=== PATIENT | male | born 1985 | race Caucasian/White ===

== ENCOUNTER 2022-11-04 12:38 | Emergency (ER) | payer SELFPAY ==
[2022-11-04] MEDS ORDERED: ETOMIDATE 20 MG/10 ML VIAL IV ONE (12:39)
[2022-11-04] MEDS ORDERED: ROCURONIUM 50 MG/5 ML VIAL IV ONE (12:39)
[2022-11-04] MEDS ORDERED: LORazepam 2 MG/ML VIAL ONE ×2 (12:42→13:22)
[2022-11-04] MEDS ORDERED: NA CHLORIDE 0.9% 2,000 ML ONE ×3 (12:42→12:53)
--- OUTSIDE RECORDS SUMMARY | 2022-11-04 12:43 | XMS REPORT | Continuity of Care Document ---
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 ramirez [facility] 2019-11-19 2019-11-19 Emergency Ruth [facility] 1.2.840.114 [id number] Univers 16:23:37 19:40:00 Antoine B Health 350.1.13.10 it y of [place] 4.2.7.2.686 [facility] [id number] [address] ([facility]) 2019-11-19 2019-11-19 Emergency X RUTH [facility] ERT [id number] Univers 16:23:37 19:40:00 ANTOINE ity of [facility] 2019-11-16 2019-11-16 Telephone Orthopedic [facility] 1.2.840.114 [id number] Univers 00:00:00 00:00:00 Surgery SOUTH 350.1.13.10 it y of [place] 4.2.7.2.686 [facility] [id number] [address] 2019-11-14 2019-11-14 Emergency Ekaterina, [facility] 1.2.530.173 [id number] Univers 20:46:41 22:30:00 [facility] 350.1.13.10 it y of [place] 4.2.7.2.686 [facility] [phone] [address] ([facility]) 2019-11-14 2019-11-14 Emergency X EKATERINA, [facility] ERT [id number] Univers 20:46:41 22:30:00 CYNPATRICIA itkathy [facility] 2019-10-31 2019-11-04 Inpatient HCACL HARLEY [id number] [facility] 02:33:00 08:01:52 29 [facility] 2018-04-15 2018-04-15 Emergency [facility] [id number] [place] 16:40:37 16:40:37 Health 2017-01-31 2017-01-31 Outpatient [facility] [id number] [place] 00:00:00 00:00:00 Health 2017-01-28 2017-01-28 Emergency [facility] [id number] [place] 00:45:08 00:45:08 Health Results Test Description Test Time Test Comments Results Result Comments Source CBC with Differential 2022-03-12 11:35:48 Test Item Value Reference Range Interpretation Comme nts WBC (test code = 6690-2) See_Comment [A utomated message] The system which ge nerated this result transmit rosalio reference range: 4.20 - 1 0.70 10*3/?L. The reference r belem was not used to interpr et this result as normal/abnor mal. RBC (test code = 789-8) See_Comment [Au tomated message] The system which [employer] nerated this result transmit rosalio reference range: 4.26 - 5 .52 10*6/?L. The reference r belem was not used to interpr et this result as normal/abnor mal. HGB (test code = 718-7) 14.1 g/dL 12.2-16.4 HCT (test code = 4544-3) 41.4 % 38.4-49.3 MCV (test code = 787-2) 92.8 fL 81.7-95.6 MCH (test code = 785-6) 31.6 pg 26.1-32.7 MCHC (test code = 786-4) 34.1 g/dL 31.2-35 RDW-SD (test code = 73510-8) 42.0 fL 38.5-51.6 RDW-CV (test code = 788-0) 12.2 % 12.1-15.4 PLT (test code = 777-3) See_Comment H [Au tomated message] The system which [employer] nerated this result transmit rosalio reference range: 150 - 32 8 10*3/?L. The reference range was not used to interpret th is result as normal/abnormal . MPV (test code = 67085-1) 8.9 fL 9.8-13 L NRBC/100 WBC (test code = See_Comment [ Automated message] The [id number]) system which [employer] nerated this result transmit rosalio reference range: 0.0 - 10 .0 /100 WBCs. The reference r belem was not used to interpr et this result as normal/abnor mal. NRBC x10^3 (test code = See_Comment [Au tomated message] The 7174540451) system which [employer] nerated this result transmit rosalio reference range: 10*3/?L. The reference range was not u sed to interpret this result as normal/abnormal . GRAN MAT (NEUT) % (test code 73.2 % = 770-8) IMM GRAN % (test code = 1.20 % 8282954981) LYMPH % (test code = 736-9) 17.1 % MONO % (test code = 5905-5) 7.5 % EOS % (test code = 713-8) 0.2 % BASO % (test code = 706-2) 0.8 % GRAN MAT x10^3(ANC) (test 6.47 10*3/uL 1.99-6.95 code = 8285251441) IMM GRAN x10^3 (test code = 0.11 10*3/uL 0-0.06 H 0298782839) LYMPH x10^3 (test code = 1.51 10*3/uL 1.09-3.23 731-0) MONO x10^3 (test code = 0.66 10*3/uL 0.36-1.02 742-7) EOS x10^3 (test code = 0.06-0.53 L 711-2) BASO x10^3 (test code = 0.07 10*3/uL 0.01-0.09 704-7) Lab Interpretation (test Abnormal code = 38501-4) [facility] [id number] 11:30:30 Test Item Value Reference Range Interpretation Comments NA (test code = 142 mmol/L 135-145 9331857958) K (test code = 4.3 mmol/L 3.5-5 3433674288) CL (test code = 103 mmol/L 98-108 5237667189) CO2 TOTAL (test code = 28 mmol/L 23-31 0074164303) AGAP (test code = 2-16 3228090792) BUN (test code = 28 mg/dL 7-23 H 0578035154) GLUCOSE (test code = 109 mg/dL 70-110 1916680488) CREATININE (test code = 1.18 mg/dL 0.6-1.25 2672908529) TOTAL BILI (test code = 0.3 mg/dL 0.1-1.1 1470499278) CALCIUM (test code = 10.2 mg/dL 8.6-10.6 6690089272) T PROTEIN (test code = 8.0 g/dL 6.3-8.2 7675694505) ALBUMIN (test code = 5.0 g/dL 3.5-5 2940429306) ALK PHOS (test code = 73 U/L 34-122 1656780510) ALTv (test code = 19 U/L 5-50 1742-6) AST(SGOT) (test code = 20 U/L 13-40 8079331663) eGFR (test code = mL/min/1.73m2 6513256697) SPRING (test code = SPRING) Association of Glomerular Filtration Rate (GFR) and Staging of Kidney Disease* + --+ --+ ------+| GFR (mL/min/1.73 m2) ?| With Kidney Damage ?| ?Without Kidney Damage+ --------+ --------+ +| ?>90 ?| ?Stage one ?| ? Normal ?+ ---+ ---+ -------+| ?60-89 ?| ?Stage two ?| ? Decreased GFR ? + --+ --+ ------+| ?30-59 ?| ?Stage three ?| ? Stage three ? + --+ --+ ------+| ?15-29 ?| ?Stage four ? | ? Stage four ?+ ---+ ---+ -------+| ?<15 (or dialysis) ? ?| ?Stage five ? | ? Stage five ?+ ---+ ---+ -------+ *Each stage assumes the associated GFR level has been in effect for at least three months. ?Stages 1 to 5, with or without kidney disease, indicate chronic kidney disease. Notes: Determination of stages one and two (with eGFR >59mL/min/1.73 m2) requires estimation of kidney damage for at least three months as defined by structural or functional abnormalities of the kidney, manifested by either:Pathological abnormalities or Markers of kidney damage (including abnormalities in the composition of the blood or urine or abnormalities in imaging tests). Lab Interpretation Abnormal (test code = 15483-5) [facility], [id number] 11:30:09 Test Item Value Reference Range Interpretation Comments LIPASE (test code = 9963452090) 72 U/L 0-220 Lab Interpretation (test code = Normal 36453-8) [facility], Urinalysis Rflx Cult/[id number] 00:30:00 Test Item Value Reference Range Interpretation Comments Color,Urine (test code = UCOL) Yellow Yellow Clarity,Urine (test code = Clear Clear UCLAR) Ph, Urine (test code = UPH) 5.5 5.0-9.0 N Specific [place],Urine (test >= 1.030 1.005-1.030 N code = USG) Blood,Urine (test code = UBLD) Negative mg/dL Negative Protein,Urine (test code = Trace mg/dL Negative A UPRO) Glucose,Urine (UA) (test code Negative mg/dL Negative = UGLU) Ketones,Urine (test code = Trace mg/dL Negative A UKET) Nitrate,Urine (test code = Negative Negative UNIT) Bilirubin,Urine (test code = Negative mg/dL Negative UBIL) Urobilinogen,Urine (test code 1.0 E.U./dL Normal = UURO) Leukocyte Esterase,Urine (test Negative mg/dL Negative code = ULEU) Urine [id number] 00:30:00 Test Item Value Reference Range Interpretation Comments RBC,Urine (test code = URBCUF) 3-5 /HPF 0-2 A WBC,Urine (test code = UWBCUF) 0-5 /HPF 0-5 Epithelial Cell,Urine (test None Seen /HPF 0-5 code = UECUF) Casts,Urine (test code = None Seen /LPF None Seen UCASTUF) Bacteria,Urine (test code = None Seen /hpf None Seen UBACTUF) Drug Screen,[id number] 00:30:00 Test Item Value Reference Range Interpretation Comments PCP Phencyclidine Negative Negative Screen,Urine (test code = PCPU) Amphetamine Positive Negative A Confirmation by GC/MS Screen,Urine (test code not routinely = AMPU) performed. Ifconfirmation is required, an or rossy must be placed. Methadone Screen,Urine Negative Negative (test code = METHU) Opiate Screen,Urine Negative Negative (test code = UOPIS) Barbituates Negative Negative Screen,Urine (test code = BARBU) Benzodiazepines Negative Negative Screen,Urine (test code = UBENZS) Cocaine Screen,Urine Negative Negative (test code = UCOCS) Cannabinoid Positive Negative A Screen,Urine (test code = UTHCS) Propoxyphene Screen, TNP Negative Urine (test code = UPROP) Complete Blood Count Auto [id number] 19:30:00 Test Item Value Reference Range Interpretation Comments White Blood Count (test code = 6.0 x10 3/uL 4.4-10.5 N WBCT) Red Blood Count (test code = 4.06 x10 6/uL 4.10-5.70 L RBC) Hemoglobin (test code = HGBT) 12.9 g/dL 13.4-17.4 L Hematocrit (test code = HCTT) 38.7 % 38.7-52.0 N Mean Corpuscular Volume (test 95.30 fL 80.00-100.00 N code = MCV) Mean Corpuscular Hemoglobin 31.8 pg 27.0-32.5 N (test code = MCH) Mean Corpuscular HGB Conc 33.30 g/dL 32.00-37.50 N (test code = MCHC) RDW Coefficient of Variation 12.3 % 11.5-14.5 N (test code = RDWCV) Platelet Count (test code = 359.0 x10 3/uL 140.0-440.0 N PLTT) Mean Platelet Volume (test 8.9 fL code = MPV) Immature Granulocytes % (Auto) 0.2 % 0.0-5.0 N (test code = IMMGRAN%) Neutrophils % (Auto) (test 71.0 % 36.0-70.0 H code = NE%) Lymphocytes % (Auto) (test 19.3 % 12.0-44.0 N code = LY%) Monocytes % (Auto) (test code 8.5 % 0.0-11.0 N = MO%) Eosinophils % (Auto) (test 0.5 % 0.0-7.0 N code = EO%) Basophils % (Auto) (test code 0.5 % 0.0-2.0 N = BA%) Immature Granulocytes # (Auto) 0.01 x10 3/uL (test code = IMMGRAN#) Neutrophils # (Auto) (test 4.2 x10 3/uL 1.6-7.4 N code = NE#) Lymphocytes # (Auto) (test 1.15 x10 3/uL 0.50-4.60 N code = LY#) Monocytes # (Auto) (test code 0.51 x10 3/uL 0.00-1.20 N = MO#) Eosinophils # (Auto) (test 0.03 x10 3/uL 0.00-0.74 N code = EO#) Basophils # (Auto) (test code 0.03 x10 3/uL 0.00-0.21 N = BA#) nRBC Abs (test code = NRBCA) 0 nRBC Pct (test code = NRBCP) 0 % Comprehensive Metabolic [id number] 19:30:00 Test Item Value Reference Range Interpretation Comments SODIUM (test code = NA) 141.0 mmol/L 136.0-145.0 N Potassium,K (test code = K) 3.4 mmol/L 3.0-5.1 N Chloride (test code = CL) 105 mmol/L 98-107 N Carbon Dioxide (test code = CO2) 28 mmol/L 20-31 N Anion Gap (test code = GAP) 8 mmol/L 5-15 N Blood Urea Nitrogen (test code = 19 mg/dL 9-23 N BUN) Creatinine (test code = CREATT) 1.06 mg/dL 0.55-1.02 H Creatinine Clr Calc Pharmacy 93.96 mL/min (test code = CRCLPHA) Estimated GFR ( Darlene > 60 mL/min/1.73m2 (test code = EGFRAA) Estimated GFR (Non Afr Darlene > 60 mL/min/1.73m2 (test code = EGFRNAA) BUN/Creatinine Ratio (test code 18 ratio 10-20 N = BCRATIO) Glucose (test code = GLU) 98 mg/dL 74-106 N Osmolality,Calculated (test code 293.7 = OSMOC) Calcium (test code = CA) 9.4 mg/dL 8.3-10.6 N Bilirubin,Total (test code = 0.6 mg/dL 0.2-1.1 N BILIT) Aspartate Amino Transferase 40 U/L 0-34 H (test code = AST) Alanine Aminotransferase (test 22 U/L 10-49 N code = ALT) Total Protein (test code = TP) 6.7 g/dL 5.7-8.2 N Albumin Level (test code = ALB) 4.5 g/dL 3.2-4.8 N Globulin (test code = GLOB) 2.2 mg/dL 2.3-3.5 L Albumin/Globulin Ratio (test 2.0 ratio 0.8-2.0 N code = AGRATIO) Alkaline Phosphatase (test code 58 U/L 46-116 N = ALP) Ethanol [id number] 19:30:00 Test Item Value Reference Range Interpretation Comments Ethanol (test code < 3 mg/dL The pharm acological = ETOH) response to blo od alcohol levels mayvary from individual to i ndividual. The fatal aye ntrationhas been reported t o be >400mg/dL. Coronavirus PCR, COVID19 [id number] 19:30:00 Test Item Value Reference Range Interpretation Comments Coronavirus PCR, For use under Emergency COVID19 Rapid (test Use Authorization (EUA) code = SARSCOV2) only. Coronavirus PCR, Reference Range: COVID19 Rapid (test Negative code = FXCXUSW98.1) SARS-CoV-2 PCR Result: Negative by RT-PCR (test code = SARS-CoV-2 PCR Result:) COVID-19 Status: AsymptomaticCOVID 19 Asymptomatic IH [id number] 12:33:00 Test Item Value Reference Range Interpretation Comments COVID 19 NEGATIVE NEGATIVE Negative result s should be Asymptomatic IH AG treated a s presumptive and (test code = ifinconsistent with COVNONPUIAG) clinical signs and symptoms, or ne cessaryfor patient managem ent, should be tested with an alternativemole cular assay. Negative results do not preclude FGNG-DrU-0yadwr tion and should not be u sed as the sole basis forp atient management deci sions. Negative result s should beconsidered in the context of a pa tient's recent exposure s,history, presence of cli nical signs and symptoms consistentwith COVID-19. DRUGS OF ABUSE SCREEN [id number] 12:19:00 Test Item Value Reference Interpretation Comments Range URN COCAINE (test NEGATIVE NEGATIVE Cocaine cu t-off code = COCAURN) concentratio n: 300 ng/mL URN CANNABINOIDS POSITIVE NEGATIVE A UNCONFIRMED INITIAL (test code = SCREENING ONLY; SUGGEST CANNABURN) ADDITIONALCONFI RMATORY TESTING.Cannabi noids cut-off concent ration: 50 ng/mL URN AMPHETAMINE POSITIVE NEGATIVE A UNCONFIRMED INITIAL (test code = SCREENING ONLY; SUGGEST AMPHETURN) ADDITIONALCONFI RMATORY TESTING.Ampheta mine cut-off concentration: 1000 ng/mL URN BARBITURATE NEGATIVE NEGATIVE Barbiturate cut-off (test code = concentration: 200 ng/mL BARBITURN) URN BENZODIAZEPINE NEGATIVE NEGATIVE Benzodiaz epine cut-off (test code = concentration: 200 ng/mL BENZOURN) URN OPIATES (test NEGATIVE NEGATIVE Opiates cu t-off code = OPIATURN) concentrati on: 2000 ng/mL URN PHENCYCLIDINE NEGATIVE NEGATIVE Phencyclid ine(PCP) cut-off (PCP) (test code = concentra tion: 25 ng/ml PHENCURN) URN METHADONE (test NEGATIVE NEGATIVE Methadon e cut-off code = METHAURN) concentrati on: 300 ng/mL COMPREHENSIVE METABOLIC [id number] 12:00:00 Test Item Value Reference Range Interpretation Comments SODIUM (test code = NA) 138 mmol/l 134.0-147.0 N POTASSIUM (test code = K) 3.3 mmol/L 3.6-5.2 L CHLORIDE (test code = CL) 102 mmol/l 98.0-107.0 N CARBON DIOXIDE (test code = CO2) 28.7 mmol/l 21.0-33.0 N ANION GAP (test code = GAP) 10.6 0-20 N GLUCOSE (test code = GLU) 110 mg/dl 70.0-110.0 N BLOOD UREA NITROGEN (test code = 20 mg/dl 7.0-18.0 H BUN) CREATININE (test code = CREAT) 1.11 mg/dL 0.60-1.30 N GFR NON BLACK (test code = 79 mL/min 105-110 L GFRNONBLACK) GFR BLACK (test code = GFRBLACK) 95 mL/min 127-133 L TOTAL PROTEIN (test code = PROT) 7.8 GM/DL 6.0-8.1 N ALBUMIN (test code = ALB) 4.4 gm/dL 3.2-4.7 N CALCIUM (test code = CA) 9.2 mg/dl 8.0-10.5 N BILIRUBIN TOTAL (test code = 0.5 mg/dl 0.0-1.0 N BILT) SGOT/AST (test code = AST) 21 Units/L 15-37 N SGPT/ALT (test code = ALT) 29 Units/L 12.0-78.0 N ALKALINE PHOSPHATASE TOTAL (test 60 Units/L 50.0-136.0 N code = ALKP) [id number] 12:00:00 Test Item Value Reference Range Interpretation Comments ALCOHOL (test code 0.00 gm/dL 0.00-0.00 N ETHYL ALC OHOL VALUES - = ALC) INTERPRETATION: 0.050 GM/DL - NOT INT OXICATED 0.100 GM/DL - INTOXICATED 0.3 50-0.450 GM/DL - SEVEREL Y INTOXICATED 0.5 50 GM/DL- FATAL INTOXICAT ION CBC W/AUTO [id number] 11:52:00 Test Item Value Reference Range Interpretation Comments WHITE BLOOD CELL (test code = 6.9 K/mm3 4.5-11.0 N WBC) RED BLOOD CELL (test code = 4.15 M/mm3 4.40-5.90 L RBC) HEMOGLOBIN (test code = HGB) 13.4 gm/dL 13.0-17.0 N HEMATOCRIT (test code = HCT) 38.8 % 36.0-48.0 N MEAN CELL VOLUME (test code = 93.5 UM3 80.0-94.0 N MCV) MEAN CELL HGB (test code = MCH) 32.3 UUG 25.5-32.5 N MEAN CELL HGB CONCETRATION 34.5 gm/dL 29.0-35.5 N (test code = MCHC) RED CELL DISTRIBUTION WIDTH 12.5 % 11.5-15.0 N (test code = RDW) RED CELL DISTRIBUTION WIDTH SD 42.9 fL 34.8-50.2 N (test code = RDW-SD) PLATELET COUNT (test code = 351 K/mm3 150-400 N PLT) MEAN PLATELET VOLUME (test code 9.1 fl 7.4-10.4 N = MPV) NEUTROPHIL % (test code = NT%) 66.0 % 49.0-76.0 N IMMATURE GRANULOCYTE % (test 0.1 % 0.0-0.4 N code = IG%) LYMPHOCYTE % (test code = LY%) 24.6 % 23.0-38.0 N MONOCYTE % (test code = MO%) 8.5 % 1.0-10.0 N EOSINOPHIL % (test code = EO%) 0.4 % 1.0-5.0 L BASOPHIL % (test code = BA%) 0.4 % 0.0-1.0 N NUCLEATED RBC % (test code = 0.0 % 0.0-0.1 N NRBC%) NEUTROPHIL # (test code = NT#) 4.6 K/mm3 2.4-6.3 N IMMATURE GRANULOCYTE # (test 0.01 x10 3/uL 0.00-0.07 N code = IG#) LYMPHOCYTE # (test code = LY#) 1.7 K/mm3 1.2-4.0 N MONOCYTE # (test code = MO#) 0.6 K/mm3 0.0-0.6 N EOSINOPHIL # (test code = EO#) 0.0 K/MM3 0.0-0.7 N BASOPHIL # (test code = BA#) 0.0 K/mm3 0.0-0.2 N NUCLEATED RBC # (test code = 0.00 X10 3uL 0.00-0.01 N NRBC#) - DUP AB/PEL/SC [id number] 06:55:00 [facility])Name: GOPAL ANDRES : 1985 Sex: M Name: GOPAL ANDRES [facility] : 1985 Age/S: 36 / M [address] [facility] Unit #: [id number] Loc: [place] [address] Phys: Clemencia Vieira MD Acct: [id number] Dis Date: Status: REG ER PHONE #: [phone] Exam Date: 06/07/202148 FAX #: [phone] Reason: R/O TORSION EXAMS: CPT CODE: [id number] DUP AB/PEL/SC COMP [id number] EXAM: - US SCROTUM AND CNTS, - DUP AB/PEL/SC COMP LOCATION: [facility] HISTORY: 36 years-year old Male with right testicle pain COMPARISON: None TECHNIQUE: Real time sonography was done with the variable megahertz high frequency linear transducer. Spectral Doppler and color Doppler sonographic analysis of the testicles was performed. FINDINGS: RIGHT TESTICLE: 4.4 x 1.8 x 3 cm. Normal arterial flow. No masses. LEFT TESTICLE: 4.5 x 2.1 x 2.7 cm. Normal arterial flow. No masses. EPIDIDYMIDES: Within normal limits of size. 6 mm right epididymal cyst. SCROTUM: Small bilateral varicoceles. No hydrocele, varicocele, or hernia. IMPRESSION: 1. No evidence of torsion. 2. Small bilateral varicoceles. at 0655 Reported and signed by: Gregg Luna M.D. CC: Ephraim Turner M.D.; Clemencia Vieira MD Technologist: Deisy Lang RDMS [facility] Date/Time: 06/07/2021 (06) [email or web address] Print D/T: S: 06/07/2021 (0659) Probe: PAGE 1 Signed Report- US SCROTUM AND CNTS 2021-06-07 06:55:00 [facility])Name: GOPAL ANDRES : 1985 Sex: M Name: GOPAL ANDRES [facility] : 1985 Age/S: 36 / M [address] [facility] Unit #:[id number] Loc: [place] [address] Phys: Clemencia Vieira MD Acct: [id number] Dis Date: Status: REG ER PHONE #: [phone] Exam Date: 06/07/2021 0648 FAX #: [phone] Reason: right testicle pain EXAMS: CPT CODE: [id number] US SCROTUM AND CNTS [id number] EXAM: - US SCROTUM AND CNTS, - DUP AB/PEL/SC COMP LOCATION: H57 HISTORY: 36 years-year old Male with right testicle pain COMPARISON: None TECHNIQUE: Real time sonography was done with the variable megahertz high frequency linear transducer. Spectral Doppler and color Doppler sonographic analysis of the testicles was performed. FINDINGS: RIGHT TESTICLE: 4.4 x 1.8 x 3 cm. Normal arterial flow. No masses. LEFT TESTICLE: 4.5 x 2.1 x 2.7 cm. Normal arterial flow. No masses. EPIDIDYMIDES: Within normal limits of size. 6 mm right epididymal cyst. SCROTUM: Small bilateral varicoceles. No hydrocele, varicocele, or hernia. IMPRESSION: 1. No evidence of torsion. 2. Small bilateral varicoceles. at 0655 Reported and signed by: Gregg Luna M.D. CC: Ephraim Turner M.D.; Clemencia Vieira MD Technologist: Deisy Lang RDMS Trnscb Date/Time: 06/07/2021 (0655) [email or web address] Orig Print D/T: S: 06/07/2021 (0659) Probe: PAGE 1 Signed ReportLACTIC [id number] 04:13:00 Test Item Value Reference Range Interpretation Comments LACTIC ACID (test code = LACT) 1.9 mmol/L 0.4-1.9 N - CTA [id number] 04:12:00 [facility])Name: GOPAL ANDRES: 1985 Sex: M Name: GOPAL ANDRES [facility] : 1985 Age/S: 36 / M [address] On License Of [facility] Unit #:[id number] Loc: [place] [address] Phys: Clemencia Vieira MD Acct: [id number] Dis Date: Status: REG ER PHONE #: [phone] Exam Date: 06/07/2021328 FAX #: [phone] Reason: tachycardia, hypoxia EXAMS: CPT CODE: [id number] CTA CHEST [id number] EXAM: - CTA CHEST LOCATION: H57 HISTORY: 36 years-yearold Male with tachycardia, hypoxia TECHNIQUE: Axial tomograms through the chest were obtained afterintravenous contrast utilizing pulmonary embolus protocol. Coronal and sagittal reformatted images are provided. At least one MIP sequence was provided. This exam was performed according to our departmental dose-optimization program, which includes automated exposure control, adjustment of the mA and/or kV according to patient size and/or use of iterative reconstruction technique. COMPARISON: None available time of interpretation. FINDINGS: Vasculature: Evaluation is limited by suboptimal contrast timing. No filling defects are seen in the pulmonary arteries to the lobar level. The pulmonary trunkand main pulmonary arteries are normal in caliber.The thoracic aorta is normal in caliber without dissection. Lungs: The lungs are clear. Pleura: No effusions or pneumothorax. Mediastinal: There is nopericardial effusion. The trachea is unremarkable. The esophagus is grossly unremarkable. Lymph nodes: There is no mediastinal, hilar, or axillary adenopathy. Bones: No acute osseous findings. Soft tissues: Unremarkable. Visualized abdomen: A separate CT of the abdomen was performed concurrently; please see that report for discussion of findings below the diaphragm. IMPRESSION: Evaluation is limited by suboptimal contrast timing. No filling defects are seen in the pulmonary arteries to the lobar level. PAGE 1 Signed Report (CONTINUED) Name: GOPAL ANDRES [facility] : 1985 Age/S: 36 / M [address] Unit #: [id number] Loc: [place] [address] Phys: Clemencia Vieira MD Acct: [id number] Dis Date: Status: REG ER PHONE #: [phone] Exam Date: 06/07/2021 0329 FAX #: [phone] Reason: tachycardia, hypoxia EXAMS: CPT CODE: [id number] CTA CHEST 49241 <Continued> at 0412 Reported and signed by: Gregg Luan M.D. CC: Ephraim Turner M.D.; Clemencia Vieira MD Technologist:Demetrius Suresh RT(R)(CT) CTDI: DLP: Trnscb Date/Time: 06/07/2021 (041) [email or web address] Orig Print D/T: S: 06/07/2021 (0416) PAGE 2 Signed Report- CT ABD PELVIS W/[id number] 04:10:00 [facility]Name: GOPAL ANDRES : 1985 Sex: M Name: GOPAL ANDRES [facility] : 1985 Age/S: 36 / M [address] Unit #: [id number] Loc: [place] [address] Phys: Clemencia Vieira MD Acct: [id number] Dis Date: Status: REG ER PHONE #: [phone] Exam Date: 06/07/2021328 FAX #: [phone] Reason: tachycardia, RUQ and RLQ ttp EXAMS: CPT CODE: [id number] CT ABD PELVIS W/CONT 27606 EXAM: - CT ABD PELVIS W/CONT LOCATION: H57 HISTORY: 36 years-year old Male with tachycardia, RUQ and RLQ ttp TECHNIQUE: IV contrast was given, no oral contrast was given. Portal venous phase - abdomen. No delayed phase images were obtained.. Reconstructions - coronal and sagittal planes. Automated exposure reduction (Auto mA/Smart mA) was utilized in compliance with ACR Image [employer]isely. COMPARISON: None FINDINGS: Hepatobiliary: The liver is normal without focal lesion. The gallbladder is normal. No biliary dilation. Pancreas: Normal. Spleen: Normal. Adrenals: Normal. Genitourinary: The kidneys are normal. No hydronephrosis. The bladderis incompletely distended, limiting evaluation. The prostate is unremarkable. Gastrointestinal: No bowel obstruction or perienteric inflammation. The appendix is not visualized but there are no pericecal inflammatory changes to suggest appendicitis. Lymphatics: No enlarged lymph nodes by CT size criteria. Vascular: The aorta is normal in appearance. No evidence of aneurysm or dissection. Bones/Soft Tissues: No acute osseous findings. No ventral hernias. Peritoneum/Other: No free air. No free fluid.Thoracic: A separate CT of the chest was performed concurrently; please see that report for discussion of findings above the diaphragm. PAGE 1 Signed Report (CONTINUED) Name: GOPAL ANDRES [facility] : 1985 Age/S: 36 / M [address] [facility] Unit #: [id number] Loc: [place] [address] Phys:Clemencia Vieira MD Acct: [id number] Dis Date: Status: REG ER PHONE #: [phone] Exam Date: 05/2021 FAX #: [phone] Reason: tachycardia, RUQ and RLQ ttp EXAMS: CPT CODE: [id number] CTABD PELVIS W/CONT 98493 <Continued> IMPRESSION: No acute findings in the abdomen/pelvis. at 0410 Reported and signedby: Gregg Luna M.D. CC: Clemencia Vieira MD Technologist:Demetrius Suresh, RT(R)(CT) CTDI: DLP: Trnscb Date/Time: 06/07/2021 (041) [email or web address] Orig Print D/T: S: 06/07/2021 (0419) PAGE 2 Signed ReportDRUGS OF ABUSE SCREEN [id number] 03:39:00 Test Item Value Reference Range Interpretation Comments UA PH DIPSTICK (test 6.0 5.0-8.0 code = THANH) URN COCAINE (test code = NEGATIVE See_Comment [A utomated message] COCAURN) The system [email or web address] generated this result transmitted ref erence range: <300 ng/ mL. The reference r belem was not used to interpret this result as normal/abnor mal. URN CANNABINOIDS (test NEGATIVE See_Comment [Aut omated message] code = CANNABURN) The system which generated this result transmitted ref erence range: <50 ng/m L. The reference range was not used to int erpret this result as normal/abnormal . URN AMPHETAMINE (test POSITIVE See_Comment [Auto mated message]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 /Age/Sex: 1985/37/M Admit/Reg Date: 02/04/[address]: CHAO Lau Location: [facility]/ PCP: PCP,UNKNOWN Date of Service: 02/04/22 Order (s): CT head/brain wo contrast CPT Code: 12207 Report Number: [id number] Reason for Exam: Injury EXAM: CT HEAD WITHOUT IV CONTRAST LOCATION: H57 HISTORY: 37 years- year old Male with Injury TECHNIQUE: Computerized tomography images from the skull base to the vertex were obtained. Coronal and sagittal reformatted images are provided. This exam was performed according to our departmental dose- optimization program, which includesautomated exposure control, adjustment of the mA and/or kV according to patient size and/or use of iterative reconstruction technique COMPARISON: None FINDINGS: Brain: The brain parenchyma is unremarkable. There is no evidence of an acute territorial infarct. There is no mass effect, midline shift, orparenchymal edema. Ventricles/Extra-axial spaces: There is no acute intracranial hemorrhage or extra-axial fluid collection. The ventricles are unremarkable. No basal cistern effacement. Bones: There is no evidence of acute displaced calvarial fracture. Sinuses: The visualized paranasal sinuses and mastoid air cells are clear. Soft Tissues: Unremarkable. Other: None. IMPRESSION: 1. No CT evidence of acute intracranial abnormality. Electronically signed by: Gregg Luna MD 02/04/2022 8:30 PM CDT Dictated By: Gregg Luna MD 02/04/221938 Signed By: Gregg Luna MD 02/04/222032 TD/TT: 02/04/221938 Tech: [facility] cc: CHASE; PCPUNK* Rosa Becker, PAC; PCP,UNKNOWN"
[2022-11-04] MEDS ORDERED: D10W 250 ML IV ONE (12:59)
[2022-11-04 13:00] LABS: Urine Blood 2+ (Negative); Urine Glucose Negative (Negative); Urine Protein 3+ (Negative); Urine Specific Gravity >=1.030 (1.005-1.030); Urine pH 5.5 (5.0-7.0)
[2022-11-04 13:02] LABS: Absolute Lymphocytes (CBC) 1.4 K/uL (0.7-4.9); Hematocrit 47.3 % (39.6-49.0); Lymphocytes % 13.1 % (15.3-44.8); MCV 100.6 fL (80-100); MPV 7.9 fL (7.6-11.3)
[2022-11-04 13:05] LABS: Protime INR 1.14
[2022-11-04 13:14] LABS: Arterial Blood Carboxyhemoglob 0.4 % (0-1.5); Blood Gas Oxyhemoglobin 93.8 % (94-97)
--- NOTE | 2022-11-04 13:20 | RAD REPORT ---
EXAM DESCRIPTION: RAD - Chest Single View - 11/04/2022 1:12 pm CLINICAL HISTORY: AMS Chest pain. COMPARISON: No comparisons FINDINGS: Portable technique limits examination quality. The lungs are grossly clear. The heart is normal in size. No displaced fractures. IMPRESSION: No acute intrathoracic process suspected.
[2022-11-04 13:23] LABS: Barbiturates NEGATIVE (NEGATIVE); Benzodiazepines NEGATIVE (NEGATIVE); Cocaine NEGATIVE (NEGATIVE); METHAMPHETAM POSITIVE (NEGATIVE); Methadone NEGATIVE (NEGATIVE); Opiates NEGATIVE (NEGATIVE); Phencyclidine NEGATIVE (NEGATIVE); THC Cannibis POSITIVE (NEGATIVE)
[2022-11-04 13:36] LABS: ALT/SGPT 97 U/L (16-61); AST/SGOT 134 U/L (15-37); Albumin 5.3 g/dL (3.4-5.0); Alkaline Phosphatase 94 U/L (45-117); BUN Blood Urea Nitrogen 32 mg/dL (7-18); Bilirubin Direct 0.4 mg/dL (0-0.2); Bilirubin Total 1.3 mg/dL (0.2-1.0); Glomerular Filtration Rate 22 ml/min (=/>90); Glucose Level 67 mg/dL (74-106); Potassium 5.3 mmol/L (3.5-5.1); Protein, Total 9.2 g/dL (6.4-8.2); Sodium Level 147 mmol/L (136-145)
[2022-11-04 13:38] LABS: Bicarbonate 11 mmol/L (21-32)
[2022-11-04] MEDS ORDERED: D5W 1,000 ML with NA BICARB 8.4% 150 MEQ IV SCH ×2 (14:00)
[2022-11-04] MEDS ORDERED: ACETAMINOPHEN 650MG/RECT SUPP PR ONE ×2 (14:01→19:40)
--- NOTE | 2022-11-04 14:34 | RAD REPORT ---
EXAM DESCRIPTION: CT - Head Brain Wo Cont - 11/04/2022 2:26 pm CLINICAL HISTORY: AMS Headache, drowsiness COMPARISON: Abdomen Pelvis Wo Contrast dated 11/04/2022 TECHNIQUE: All CT scans are performed using dose optimization technique as appropriate and may inclu de automated exposure control or mA/KV adjustment according to patient size. FINDINGS: No intracranial hemorrhage, hydrocephalus or extra-axial fluid collection.No areas of brai n edema or evidence of midline shift. The paranasal sinuses and mastoids are clear. The calvarium is intact. IMPRESSION: No acute intracranial abnormality.
--- NOTE | 2022-11-04 14:35 | RAD REPORT ---
EXAM DESCRIPTION: CT - Abdomen Pelvis Wo Contrast - 11/04/2022 2:27 pm CLINICAL HISTORY: Abdominal pain. possible ingestion COMPARISON: No comparisons TECHNIQUE: CT imaging of the abdomen and pelvis was performed without contrast. Solid organ, bowel a nd vascular assessment is limited due to lack of IV and oral contrast. All CT scans are performed using dose optimization technique as appropriate and may include automated exposure control or mA/KV adjustment according to patient size. FINDINGS: The lower lung mcfarlane are clear. The liver, spleen, pancreas, adrenal glands and kidneys are within normal limits for a limited non-co ntrast examination. No bowel obstruction, free air, free fluid or abscess. Gaseous and fluid distention of colon and smal l bowel loops noted. This likely represents an ileus. Nonvisualized appendix. Motion degradation is p resent. The osseous structures are within normal limits. IMPRESSION: Moderate ileus pattern is noted. A limited non-contrast examination was performed as detailed.
[2022-11-04] MEDS ORDERED: RSI MEDICATION KIT IV ONE (14:55)
[2022-11-04] MEDS ORDERED: NOREPINEPHRINE BITARTRATE/D5W 4 MG/250 ML BAG IV ONE ×3 (15:11→19:41)
[2022-11-04] MEDS ORDERED: propofoL 1,000 MG/100 ML VIAL IV ONE (15:12)
--- NOTE | 2022-11-04 15:37 | RAD REPORT ---
EXAM DESCRIPTION: RAD - Chest Single View - 11/04/2022 3:32 pm CLINICAL HISTORY: post intubation Chest pain. COMPARISON: Chest Single View dated 11/04/2022; Abdomen Pelvis Wo Contrast dated 11/04/2022 FINDINGS: Portable technique limits examination quality. Enteric tube coils in the stomach. ET tube tip is above the gualberto at the level of the superior aorti c arch. The lungs appear clear. Heart appears normal in size.
[2022-11-04 16:30] LABS: SARS-CoV-2 Antigen Rapid Res Negative (Negative)
[2022-11-04] MEDS ORDERED: PIPERACIL/TAZO 3.375 GM VIAL IV ONE (17:02)
[2022-11-04] MEDS ORDERED: NA CHLORIDE 0.9% 100 ML ONE ×2 (17:03→19:41)
[2022-11-04 18:09] LABS: Arterial Blood Carboxyhemoglob 0.1 % (0-1.5); Blood Gas Oxyhemoglobin 96.4 % (94-97); Blood O2 Saturation 98.4 % (92-98.5)
[2022-11-04] MEDS ORDERED: NA CHLORIDE 0.9% 1,000 ML ONE (19:40)
[2022-11-04] MEDS ORDERED: LEVETIRACETAM 500 MG/5 ML VIAL IV ONE (19:40)
[2022-11-04 21:07] VITALS: BP 95/76; TEMP 105.3; O2SAT 27
--- NOTE | 2022-11-08 13:17 | EKG ---
Test Date: 2022-11-04 Test Time: 12:40:04 [employer]rapeutic Riding Instructor: BILLY MEASUREMENT RESULTS: Intervals: Rate: 151 WI: 98 QRSD: 76 QT: 288 QTc: 456 [place]: P: 79 WI: 98 QRS: 90 T: 256 INTERPRETIVE STATEMENTS: Sinus tachycardia with short WI with premature atrial complexes with aberrant conduction Rightward axis Marked ST abnormality, possible inferior subendocardial injury Abnormal ECG No previous ECG available for comparison Electronically Signed On 11-08-22 13:09:24 CDT by Louis Thibodeaux
--- NOTE | 2022-11-19 15:12 | ER ---
Nurse's Notes [facility] Name: Gopal Andres Jr Age: 37 yrs Sex: Male : 1985 Arrival Date: 11/04/2022 Time: 12:39 Bed 2 Private MD: Diagnosis: Altered mental status, unspecified;Metabolic encephalopathy;Fever, unspecified;Hypotension, unspecified Presentation: 11/04 12:35 Chief complaint: EMS states: patient stopped for a DUI 1 hour ago by [place] [employer]. db Patient became unresponsive and shaking while in PD custody and gradually got worse. Patient did respond to EMS and denied taking anything. Pt vomiting and given 4mg IV Zofran by EMS and LR 300ml. glucose for them was 93. HR 150 and RR 50 to 60s. Coronavirus screen: Vaccine status: At this time, unable to obtain information related to travel outside the [place] At this time, the client does not indicate any symptoms associated with coronavirus-19. Ebola Screen: Unable to complete the Ebola screening because: Patient is unresponsive. Initial Sepsis Screen: Does the patient meet any 2 criteria? RR > 20 per min. Altered Mental Status. HR > 90 bpm. Yes Does the patient have a suspected source of infection? No. Patient's initial sepsis screen is negative. Risk Assessment: Do you want to hurt yourself or someone else? Unable to obtain. Onset of symptoms was November 04, 2022. Care prior to arrival: Medication(s) given: zofran 4 mg, IV initiated. 18 GA, in the right antecubital area, Glucose check: 93 Oxygen administered. via a non-rebreather mask. Activity prior to arrival: confused, Hyperventilating, vomiting. 12:35 Method Of Arrival: EMS: [facility] db 12:35 Acuity: MENG 2 db Triage Assessment: 12:35 General: Appears distressed, Behavior is unresponsive. Neuro: Level of Consciousness is db unresponsive. Respiratory: Airway is patent Respiratory effort is even, labored, Respiratory pattern is symmetrical, hyperventilation. GI: Abdomen is flat, non-distended. Historical: - Allergies: 13:14 Unable to obtain; db - Home Meds: 13:14 Unable to obtain [Active]; db - PMHx: 15:09 Unable to Obtain; jl7 - PSHx: 13:14 Unable to Obtain; db - Immunization history:: Adult Immunizations unknown. - Social history:: Smoking status: unknown. - History obtained from: EMS. - Unable to obtain history due to: altered mental status. Screenin:13 [facility] ED Fall Risk Assessment (Adult) History of falling in the last 3 months, db including since admission Altered Elimination Yes (1 pt). Abuse screen: unable to assess. Nutritional screening: unable to assess. Tuberculosis screening: unable to assess. Assessment: 12:35 General: Appears distressed. Neuro: Level of Consciousness is unresponsive. db Respiratory: Airway is patent Respiratory effort is even, unlabored, Respiratory pattern is symmetrical, hyperventilation. GI: Abdomen is flat, non-distended. : No deficits noted. 13:03 Reassessment: D10 in 250 ml bag drip started due to glucose [address] Garcia. Pain: db Unable to use pain scale. Patient is unresponsive. 14:31 Reassessment: patient returned to room from CT. db 14:45 Reassessment: ice packs placed on patient and cooling measures done. db 14:50 Reassessment: Pt vomited x 1. Rolled patient and suctioned with yanker. Dr. Garcia ss notified. 14:55 Reassessment: setup for intubation. Dr. Garcia at patient bedside. db 14:59 Reassessment: Successful intubation. ss 15:00 Reassessment: Patient and/or family updated on plan of care and expected duration. Pain db level reassessed. Respiratory: Respiratory effort is even, labored, Respiratory pattern is symmetrical, Breath sounds are clear the patient has severe shortness of breath. 15:08 Reassessment: Dr. Garcia at bedside to place central line. ss 15:25 Reassessment: Etommidate started see MAR. db 15:25 Reassessment: Patient and/or family updated on plan of care and expected duration. Pain db level reassessed. Respiratory: Airway is patent Respiratory effort is even, unlabored, Respiratory pattern is regular, symmetrical. 15:48 Reassessment: patient intubated appears more relaxed. db 16:15 Reassessment: Propofol started See MAR. db 16:55 Reassessment: Patient and/or family updated on plan of care and expected duration. Pain db level reassessed. intubated and sedated. 17:30 Reassessment: No changes from previously documented assessment. Patient and/or family db updated on plan of care and expected duration. Pain level reassessed. RT at bedside. 18:43 Reassessment: report given to Renetta Molina RN at [facility] ICU. db 11/05 10:05 Reassessment: Result for blood culture was sent to [facility], spoke to ICU nurse, delano Snider, and results were faxed. . Vital Signs: 11/04 12:35 BP 151 / 137; Pulse 151; Resp 40; Temp 97.2(TE); Pulse Ox 77% on R/A; db 13:17 BP 83 / 49; Pulse 154; Resp 50; Pulse Ox 98% on 4 lpm NC; db 13:30 BP 95 / 48; Pulse 152; Resp 35; Pulse Ox 99% on 4 lpm NC; db 14:00 BP 101 / 84; Pulse 143; Resp 38; Temp 105.9(R); Pulse Ox 97% on 4 lpm NC; Weight 68 kg db (M); 14:15 BP 87 / 48; Pulse 136; Resp 38; Temp 106.5(Ca); Pulse Ox 96% on 4 lpm NC; db 14:55 BP 73 / 35; Pulse 120; Resp 35; Temp 106.6(Ca); Pulse Ox 80% ; db 15:00 BP 60 / 39; Pulse 138; Resp 16; Temp 106.6(Ca); Pulse Ox 98% on ETT vent; db 15:17 Weight 68 kg; db 15:30 BP 70 / 46; Pulse 125; Resp 16; Temp 106.3(Ca); Pulse Ox 100% on ETT vent; db 15:40 BP 77 / 42; Pulse 125; Resp 16; Temp 106.2(Ca); Pulse Ox 100% on ETT vent; db 15:42 BP 77 / 42; db 15:45 BP 80 / 54; db 15:45 BP 80 / 54; Pulse 125; db 15:50 BP 87 / 52; Pulse 125; db 15:50 BP 87 / 52; Pulse 125; db 15:55 BP 91 / 43; Pulse 128; Resp 16; Temp 105.8(Ca); Pulse Ox 100% on ETT vent; db 15:56 BP 91 / 43; Pulse 128; db 16:15 BP 101 / 63; Pulse 129; Resp 16; Temp 105.4(Ca); Pulse Ox 100% on ETT vent; db 16:20 BP 99 / 61; Pulse 131; Resp 20; Temp 105.4; Pulse Ox 100% on ETT vent; db 16:28 BP 99 / 61; db 16:30 BP 89 / 72; Pulse 133; db 16:30 BP 89 / 72; Pulse 134; Resp 20; Temp 105.3(Ca); Pulse Ox 100% on ETT vent; db 16:40 BP 92 / 69; Pulse 134; Resp 25; Temp 105.2; Pulse Ox 100% ; db 16:45 BP 94 / 42; db 16:45 BP 94 / 42; db 16:45 BP 94 / 42; Pulse 136; Resp 27; Temp 105.1; Pulse Ox 100% on ETT vent; db 16:50 BP 94 / 63; Pulse 135; Resp 26; Temp 105.1; db 16:55 BP 95 / 82; Pulse 136; Resp 27; Temp 105.1(Ca); Pulse Ox 100% on ETT vent; db 17:00 BP 102 / 77; Pulse 135; Resp 28; Temp 105(Ca); db 17:05 BP 93 / 73; Pulse 137; Resp 28; Temp 105(Ca); Pulse Ox 100% on ETT vent; db 17:10 BP 99 / 70; Pulse 136; Resp 28; Temp 105; Pulse Ox 98% ; db 17:15 BP 96 / 64; Pulse 138; Resp 28; Temp 105(Ca); db 17:20 BP 89 / 34; Pulse 136; Resp 28; Temp 104.9(Ca); Pulse Ox 100% ; db 17:45 BP 97 / 50; Pulse 136; Resp 28; Temp 104.9(Ca); Pulse Ox 100% ; db 18:00 BP 107 / 67; Pulse 137; Resp 28; Temp 104.8(Ca); Pulse Ox 100% ; db 18:15 BP 86 / 69; Pulse 138; Resp 18; Temp 104.9; Pulse Ox 97% ; db 18:40 BP 92 / 67; Pulse 140; Resp 28; Temp 104.9(Ca); Pulse Ox 99% on ETT vent; db 19:53 BP 95 / 76; Pulse 139; Resp 27 A; Temp 105.3(Ca); Pulse Ox 27% on ETT vent; as6 12:35 placed on 4L O2 saturation increased to 92% db 13:[address] Garcia of patient BP db 14:[address] Garcia of pt temp db 14:55 physician at bedside prepping for intubation db 15:45 See MAR db 15:50 See MAR db 16:30 MAP 79 db Vitals: 13:14 Cardiac Rhythm Assessment Sinus tach. db ED Course: 12:39 Patient arrived in ED. eb 12:40 Client placed on continuous cardiac and pulse oximetry monitoring. NIBP monitoring jl7 applied. 12:40 Initial lab(s) drawn, by me, sent to lab. Urine collected: Enamorado catheter specimen, jl7 cloudy, EKG done, by ED staff, reviewed by Ethan Garcia MD. Maintain EMS IV. Dressing intact. Good blood return noted. Site clean \T\ dry. Gauge \T\ site: 18 right AC. 12:41 Ethan Garcia MD is Attending Physician. rn 12:47 Zandra Melo, RN is Primary Nurse. db 13:10 Triage completed. db 13:14 XRAY Chest (1 view) In Process Unspecified. EDMS 14:10 Enamorado cath inserted, using sterile technique, 16 Fr., by me, balloon inflated, to db gravity drainage, urine specimen collected. 14:28 CT Head Brain wo Cont In Process Unspecified. EDMS 14:29 CT Abd/Pelvis - Without Contrast In Process Unspecified. EDMS 14:31 Patient has correct armband on for positive identification. Placed in gown. Bed in low db position. Call light in reach. Side rails up X2. 14:59 Assisted provider with intubation using 8.0 mm ETT via oral route. ET tube secured at ss 23cm at the teeth. Intubated by Ethan Garcia MD Placement verified by CO2 detector w/ + color change, auscultating bilateral breath sounds, Patient tolerated well. 15:28 NGT: inserted 18 Fr. other oral verified placement of air over stomach, xray will be db done Patient tolerated well. 15:33 CXR XRAY In Process Unspecified. EDMS 15:57 initiated a transfer with Kristin from the [facility]. eb 16:23 per Kristin [facility] will have to decline the patient in transfer due to eb being at capacity/ She will try [facility] and [facility]. 17:17 connected the office services associate road production general manager for [facility] with Dr. Garcia for patient eb transfer consultation. 17:38 administrative approval given by Gaby Senior Rn/ patient has been accepted to [facility] ICU 06/ Dr. Parish Meeks has accepted the patient in transfer/ report to be called to the transfer center at [phone]. 19:54 Arm band placed on. as6 19:57 Patient transferred, IV remains in place. as6 Administered Medications: 12:35 Drug: Ativan IVP 2 mg Route: IVP; Site: right antecubital; db 19:58 Follow up: Response: No adverse reaction as6 12:40 Drug: NS 0.9% IV 1000 ml Route: IV; Rate: 1000 ml; Site: right antecubital; db 13:45 Follow up: Response: No adverse reaction; IV Status: Completed infusion; IV Intake: db 1000ml 12:45 Drug: NS 0.9% IV 1000 ml Route: IV; Rate: 1000 ml; Site: left forearm; db 13:30 Follow up: Response: No adverse reaction; IV Status: Completed infusion; IV Intake: db 1000ml 13:03 Drug: D10 in Water IVP 200 ml Route: IVP; Site: left forearm; db 13:15 Follow up: Response: No adverse reaction db 13:28 Drug: Ativan IVP 2 mg Route: IVP; Site: left forearm; db 17:26 Follow up: Response: No adverse reaction db 14:10 Drug: Acetaminophen MI Suppository 650 mg Route: MI; db 17:25 Follow up: Response: No adverse reaction; Temperature is decreased db 14:45 Drug: D5W IV 1000 ml, Sodium Bicarbonate IVP 150 mEq Route: IV; Rate: 150 ml/hr; Site: db left antecubital; 19:58 Follow up: Response: No adverse reaction; IV Status: Infusion continued upon transfer as6 14:58 Drug: Etomidate IVP 20 mg {Note: administered by GLENIS De Paz.} Route: IVP; Site: right ss antecubital; 17:21 Follow up: Response: No adverse reaction db 14:58 Drug: Rocuronium IVP 50 mg {Note: Administered by GLENIS De Paz.} Route: IVP; Site: ss right antecubital; 17:21 Follow up: Response: No adverse reaction db 15:00 Drug: NS 0.9% IV (30 ml/kg) 30 ml/kg Route: IV; Rate: bolus; Site: left antecubital; db 15:26 Drug: Norepinephrine IV 0.1 mcg/kg/min Route: IV; Rate: calculated rate; Site: right db femoral; 15:34 Follow up: Rate change 0.15 mcg/kg/min db 15:42 Follow up: BP 77 / 42; Rate change 0.2 mcg/kg/min db 15:45 Follow up: BP 80 / 54; Rate change 0.25 mcg/kg/min db 15:50 Follow up: BP 87 / 52; Pulse 125 bpm; Rate change 0.3 mcg/kg/min db 15:56 Follow up: BP 91 / 43; Pulse 128 bpm; Rate change 0.35 mcg/kg/min db 16:30 Follow up: BP 89 / 72; Pulse 133 bpm; Rate change 0.4 mcg/kg/min db 16:45 Follow up: BP 94 / 42; Rate change 0.45 mcg/kg/min db 19:59 Follow up: Response: No adverse reaction as6 20:00 Follow up: Response: No adverse reaction; IV Status: Infusion continued upon transfer as6 16:15 Drug: Propofol IV 5 mcg/kg/min Route: IV; Rate: calculated rate; Site: right femoral; db 16:28 Follow up: BP 99 / 61; Rate change 7.5 mcg/kg/min db 16:34 Follow up: Rate change 10 mcg/kg/min db 16:45 Follow up: BP 94 / 42; Rate change 12.5 mcg/kg/min db 19:59 Follow up: Response: No adverse reaction; IV Status: Infusion continued upon transfer as6 17:13 Drug: Piperacillin-Tazobactam IVPB 3.375 grams Route: IVPB; Infused Over: 60 mins; db Site: right antecubital; 18:15 Follow up: Response: No adverse reaction; IV Status: Completed infusion; IV Intake: db 100ml 19:38 Drug: Acetaminophen MI Suppository 1300 mg Route: MI; as6 19:58 Follow up: Response: No adverse reaction as6 19:40 Drug: NS 0.9% IV 1000 ml Route: IV; Rate: 1 bolus; Site: right femoral; as6 19:58 Follow up: Response: No adverse reaction; IV Status: Completed infusion; IV Intake: as6 1000ml 19:40 Drug: Keppra IV 1000 mg Route: IV; Rate: per protocol; Site: right femoral; as6 19:57 Follow up: Response: No adverse reaction; IV Status: Completed infusion; IV Intake: as6 100ml Medication: 19:54 VIS not applicable for this client. as6 Intake: 13:30 IV: 1000ml; Total: 1000ml. db 13:45 IV: 1000ml; Total: 2000ml. db 18:15 IV: 100ml; Total: 2100ml. db 19:57 IV: 100ml; Total: 2200ml. as6 19:58 IV: 1000ml; Total: 3200ml. as6 Outcome: 15:58 ER care complete, transfer ordered by MD. rn 19:25 Transferred by ground EMS to [facility]. db 19:25 Condition: stable 19:25 Instructed on the need for transfer. 20:00 Patient left the ED. as6 Signatures: Dispatcher [employer] EDMS Ethan Garcia MD MD rn Calderon, Audri, RN RN aa5 Sandra Gonzales RN RN ss Leal, Jahala RN RN jl7 Ju Akers Ashby, RN RN as6 Zandra Melo RN RN db Corrections: (The following items were deleted from the chart) 15:08 15:06 Assisted provider with intubation using 8.0 mm ETT via oral route. ET tube ss secured at 23cm at the teeth. Intubated by Ethan Garcia MD Placement verified by CO2 detector w/ + color change, auscultating bilateral breath sounds, Patient tolerated well. ss 15:45 14:00 BP 101 / 84; Pulse 143bpm; Resp 38bpm; Pulse Ox 97% ET / Ventilator; Temp 105.9F db Rectal; 68 kg Measured; notified Dr. Garcia of pt temp; db 15:45 13:30 BP 95 / 48; Pulse 152bpm; Resp 35bpm; Pulse Ox 99% ET / Ventilator; db db
--- NOTE | 2022-11-19 15:13 | EDPHYS ---
Physician Documentation [facility] Name: Gopal Andres Jr Age: 37 yrs Sex: Male : 1985 Arrival Date: 11/04/2022 Time: 12:39 Bed 2 Private MD: ED Physician Ethan Garcia HPI: 11/04 12:53 This 37 yrs old Male presents to ER via Unassigned with complaints of AMS. rn 12:53 The patient presents with agitation, confusion, decreased responsiveness. Onset: The rn symptoms/episode began/occurred 1 hour(s) ago. Possible causes: drug use, alcohol, unknown. Associated signs and symptoms: Pertinent positives: confusion. Current symptoms: In the emergency department the patient's symptoms are unchanged from the initial presentation. Unable to obtain HPI due to altered mental status. It is unknown whether or not the patient has had similar symptoms in the past. Pt brought in by EMS, reports was arrested for DUI, and has been acting strange/altered since then. Unsure if took/ingested anything. EMS reports altered, agitated, tachycardic, and had glucose in 80s. Pt not answering questions 2/2 agitation and AMS. . Historical: - Allergies: 13:14 Unable to obtain; db - Home Meds: 13:14 Unable to obtain [Active]; db - PMHx: 15:09 Unable to Obtain; jl7 - PSHx: 13:14 Unable to Obtain; db - Immunization history:: Adult Immunizations unknown. - Social history:: Smoking status: unknown. - History obtained from: EMS. - Unable to obtain history due to: altered mental status. ROS: 12:53 Unable to obtain ROS due to altered mental status. rn Exam: 12:53 Constitutional: Thin male, altered and agitated, diaphoretic Head/Face: rn Normocephalic, atraumatic. ENT: dry MM, lower lip avulsion without active bleeding upon arrival Cardiovascular: Tachycardic, regular Respiratory: + mod tachypnea, no retractions Abdomen/GI: soft, non-distended Skin: Cool, diaphoretic MS/ Extremity: Pulses equal, no cyanosis. Neuro: Somnolent, agitated, altered, not following commands, mumbling and grunting 13:39 ECG was reviewed by the Attending Physician. rn Vital Signs: 12:35 BP 151 / 137; Pulse 151; Resp 40; Temp 97.2(TE); Pulse Ox 77% on R/A; db 13:17 BP 83 / 49; Pulse 154; Resp 50; Pulse Ox 98% on 4 lpm NC; db 13:30 BP 95 / 48; Pulse 152; Resp 35; Pulse Ox 99% on 4 lpm NC; db 14:00 BP 101 / 84; Pulse 143; Resp 38; Temp 105.9(R); Pulse Ox 97% on 4 lpm NC; Weight 68 kg db (M); 14:15 BP 87 / 48; Pulse 136; Resp 38; Temp 106.5(Ca); Pulse Ox 96% on 4 lpm NC; db 14:55 BP 73 / 35; Pulse 120; Resp 35; Temp 106.6(Ca); Pulse Ox 80% ; db 15:00 BP 60 / 39; Pulse 138; Resp 16; Temp 106.6(Ca); Pulse Ox 98% on ETT vent; db 15:17 Weight 68 kg; db 15:30 BP 70 / 46; Pulse 125; Resp 16; Temp 106.3(Ca); Pulse Ox 100% on ETT vent; db 15:40 BP 77 / 42; Pulse 125; Resp 16; Temp 106.2(Ca); Pulse Ox 100% on ETT vent; db 15:42 BP 77 / 42; db 15:45 BP 80 / 54; db 15:45 BP 80 / 54; Pulse 125; db 15:50 BP 87 / 52; Pulse 125; db 15:50 BP 87 / 52; Pulse 125; db 15:55 BP 91 / 43; Pulse 128; Resp 16; Temp 105.8(Ca); Pulse Ox 100% on ETT vent; db 15:56 BP 91 / 43; Pulse 128; db 16:15 BP 101 / 63; Pulse 129; Resp 16; Temp 105.4(Ca); Pulse Ox 100% on ETT vent; db 16:20 BP 99 / 61; Pulse 131; Resp 20; Temp 105.4; Pulse Ox 100% on ETT vent; db 16:28 BP 99 / 61; db 16:30 BP 89 / 72; Pulse 133; db 16:30 BP 89 / 72; Pulse 134; Resp 20; Temp 105.3(Ca); Pulse Ox 100% on ETT vent; db 16:40 BP 92 / 69; Pulse 134; Resp 25; Temp 105.2; Pulse Ox 100% ; db 16:45 BP 94 / 42; db 16:45 BP 94 / 42; db 16:45 BP 94 / 42; Pulse 136; Resp 27; Temp 105.1; Pulse Ox 100% on ETT vent; db 16:50 BP 94 / 63; Pulse 135; Resp 26; Temp 105.1; db 16:55 BP 95 / 82; Pulse 136; Resp 27; Temp 105.1(Ca); Pulse Ox 100% on ETT vent; db 17:00 BP 102 / 77; Pulse 135; Resp 28; Temp 105(Ca); db 17:05 BP 93 / 73; Pulse 137; Resp 28; Temp 105(Ca); Pulse Ox 100% on ETT vent; db 17:10 BP 99 / 70; Pulse 136; Resp 28; Temp 105; Pulse Ox 98% ; db 17:15 BP 96 / 64; Pulse 138; Resp 28; Temp 105(Ca); db 17:20 BP 89 / 34; Pulse 136; Resp 28; Temp 104.9(Ca); Pulse Ox 100% ; db 17:45 BP 97 / 50; Pulse 136; Resp 28; Temp 104.9(Ca); Pulse Ox 100% ; db 18:00 BP 107 / 67; Pulse 137; Resp 28; Temp 104.8(Ca); Pulse Ox 100% ; db 18:15 BP 86 / 69; Pulse 138; Resp 18; Temp 104.9; Pulse Ox 97% ; db 18:40 BP 92 / 67; Pulse 140; Resp 28; Temp 104.9(Ca); Pulse Ox 99% on ETT vent; db 19:53 BP 95 / 76; Pulse 139; Resp 27 A; Temp 105.3(Ca); Pulse Ox 27% on ETT vent; as6 12:35 placed on 4L O2 saturation increased to 92% db 13:[address] Garcia of patient BP db 14:[address] Garcia of pt temp db 14:55 physician at bedside prepping for intubation db 15:45 See MAR db 15:50 See MAR db 16:30 MAP 79 db Procedures: 15:19 Intubation: Ventilated with 100% NRB prior to procedure. O2 saturation prior to churn operator was 92 %. Intubated orally using # 4 Yogesh blade with 8.0 mm ETT. was successful on first attempt. Cricoid pressure applied during procedure. Tube secured with ETT montemayor at right side of mouth measured 23 cm at teeth. Placement verified by CXR, CO2 detector with (+) color change, auscultating bilateral breath sounds, O2 saturation after procedure was 97 %. Patient tolerated well. Central Line: the site was prepped with Betadine, in sterile fashion, a triple lumen catheter was inserted, in the right femoral vein, in 1 attempts. placement was verified, by blood return, the site was dressed with Tegaderm, using sterile technique, the patient tolerated the procedure, well. MDM: 12:41 Patient medically screened. rn 13:30 ED course: Pt seemingly ingested stimulant, perhaps upon arrest, is altered, rn tachycardic, diaphoretic, and + methamphetamine in drug screen. . 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 Still unknown if ingested, but clinical picture highly suggestive. . 15:14 Differential Diagnosis: electrolyte abnormality, alcohol intoxication, hypoglycemia, rn intracranial bleed, overdose, pneumonia, seizure, sepsis, UTI, volume depletion. Data reviewed: vital signs, nurses notes, lab test result(s), EKG, radiologic studies, CT scan, plain films, and as a result, I will admit patient. Consideration of Admission/Observation Patient was admitted/placed on observation. Escalation of care including admission/observation considered. Independent interpretation of the following test(s) in the Emergency Department EKG: See my EKG interpretation above CT Scan: My interpretation is CT head neg for acute hemorrhage per my interpretation. Counseling: I had a detailed discussion with the patient and/or guardian regarding: the historical points, exam findings, and any diagnostic results supporting the discharge/admit diagnosis, lab results, radiology results, the need for further work-up and treatment in the hospital, the need to transfer to another facility, NO ICU beds available here. Response to treatment: the patient's symptoms have mildly improved after treatment, and as a result, I will admit patient. ED course: Pt intubated for airway protection as started vomiting and still altered. . 18:48 ED course: IMproved ABG with ph up to 7.347. rn 11/04 12:42 Order name: Acetaminophen; Complete Time: 13:42 rn 11/04 12:42 Order name: Basic Metabolic Panel; Complete Time: 13:42 rn 11/04 12:42 Order name: CBC with Diff; Complete Time: 13:22 rn 11/04 12:42 Order name: ETOH Level; Complete Time: 13:22 rn 11/04 12:42 Order name: Hepatic Function; Complete Time: 13:42 rn 11/04 12:42 Order name: PT-INR; Complete Time: 13:22 rn 11/04 12:42 Order name: Ptt, Activated; Complete Time: 13:22 rn 11/04 12:42 Order name: Salicylate; Complete Time: 13:42 rn 11/04 12:42 Order name: Urine Drug Screen; Complete Time: 13:29 rn 11/04 12:56 Order name: ABG; Complete Time: 13:29 rn 11/04 13:00 Order name: Urine Dipstick-Ancillary; Complete Time: 13:22 EDNY 11/04 13:02 Order name: Urine Dipstick-Ancillary EDNY 11/04 13:05 Order name: Glucose, Ancillary Testing; Complete Time: 13:22 EDNY 11/04 13:09 Order name: Glucose, Ancillary Testing EDNY 11/04 13:36 Order name: CK; Complete Time: 14:44 rn 11/04 13:43 Order name: LAB Add On eb 11/04 13:44 Order name: Lactate w/ 2H reflex if indic.; Complete Time: 14:44 rn 11/04 13:47 Order name: Troponin High Sensitivity; Complete Time: 14:44 EDNY 11/04 15:18 Order name: SARS RAPID; Complete Time: 17:17 eb 11/04 15:58 Order name: Blood Culture Adult (2) rn 11/04 17:22 Order name: ABG; Complete Time: 19:33 rn 11/04 19:04 Order name: Lactate Sepsis 2 HR Follow-up; Complete Time: 19:33 EDNY 11/04 12:42 Order name: XRAY Chest (1 view); Complete Time: 13:22 rn 11/04 12:42 Order name: CT Head Brain wo Cont; Complete Time: 14:44 rn 11/04 13:42 Order name: CT Abd/Pelvis - Without Contrast; Complete Time: 14:44 rn 11/04 15:17 Order name: CXR XRAY; Complete Time: 15:39 eb 11/04 12:42 Order name: EKG; Complete Time: 12:43 rn 11/04 12:42 Order name: EKG - Nurse/Tech; Complete Time: 13:00 rn 11/04 12:42 Order name: IV Saline Lock; Complete Time: 13:00 rn 11/04 12:42 Order name: Labs collected and sent; Complete Time: 13:00 rn 11/04 12:42 Order name: Urine Dipstick-Ancillary (obtain specimen); Complete Time: 13:00 rn 11/04 12:42 Order name: O2 Per Protocol; Complete Time: 13:02 rn 11/04 12:43 Order name: Glucose Level; Complete Time: 12:50 rn 11/04 13:07 Order name: Misc. Order: recollect green top; Complete Time: 13:26 jl7 11/04 13:44 Order name: [place]; Complete Time: 14:30 rn EC:39 Rate is 151 beats/min. Rhythm is regular. QRS Russell is Normal. IL interval is shortened rn at 98 msec. QRS interval is normal. QT interval is normal. No Q waves. T waves are Normal. No ST changes noted. Clinical impression: Sinus tachycardia. Interpreted by me. Reviewed by me. Administered Medications: 12:35 Drug: Ativan IVP 2 mg Route: IVP; Site: right antecubital; db 19:58 Follow up: Response: No adverse reaction as6 12:40 Drug: NS 0.9% IV 1000 ml Route: IV; Rate: 1000 ml; Site: right antecubital; db 13:45 Follow up: Response: No adverse reaction; IV Status: Completed infusion; IV Intake: db 1000ml 12:45 Drug: NS 0.9% IV 1000 ml Route: IV; Rate: 1000 ml; Site: left forearm; db 13:30 Follow up: Response: No adverse reaction; IV Status: Completed infusion; IV Intake: db 1000ml 13:03 Drug: D10 in Water IVP 200 ml Route: IVP; Site: left forearm; db 13:15 Follow up: Response: No adverse reaction db 13:28 Drug: Ativan IVP 2 mg Route: IVP; Site: left forearm; db 17:26 Follow up: Response: No adverse reaction db 14:10 Drug: Acetaminophen IL Suppository 650 mg Route: IL; db 17:25 Follow up: Response: No adverse reaction; Temperature is decreased db 14:45 Drug: D5W IV 1000 ml, Sodium Bicarbonate IVP 150 mEq Route: IV; Rate: 150 ml/hr; Site: db left antecubital; 19:58 Follow up: Response: No adverse reaction; IV Status: Infusion continued upon transfer as6 14:58 Drug: Etomidate IVP 20 mg {Note: administered by DIONICIO De Paz.} Route: IVP; Site: right ss antecubital; 17:21 Follow up: Response: No adverse reaction db 14:58 Drug: Rocuronium IVP 50 mg {Note: Administered by DIONICIO De Paz.} Route: IVP; Site: ss right antecubital; 17:21 Follow up: Response: No adverse reaction db 15:00 Drug: NS 0.9% IV (30 ml/kg) 30 ml/kg Route: IV; Rate: bolus; Site: left antecubital; db 15:26 Drug: Norepinephrine IV 0.1 mcg/kg/min Route: IV; Rate: calculated rate; Site: right db femoral; 15:34 Follow up: Rate change 0.15 mcg/kg/min db 15:42 Follow up: BP 77 / 42; Rate change 0.2 mcg/kg/min db 15:45 Follow up: BP 80 / 54; Rate change 0.25 mcg/kg/min db 15:50 Follow up: BP 87 / 52; Pulse 125 bpm; Rate change 0.3 mcg/kg/min db 15:56 Follow up: BP 91 / 43; Pulse 128 bpm; Rate change 0.35 mcg/kg/min db 16:30 Follow up: BP 89 / 72; Pulse 133 bpm; Rate change 0.4 mcg/kg/min db 16:45 Follow up: BP 94 / 42; Rate change 0.45 mcg/kg/min db 19:59 Follow up: Response: No adverse reaction as6 20:00 Follow up: Response: No adverse reaction; IV Status: Infusion continued upon transfer as6 16:15 Drug: Propofol IV 5 mcg/kg/min Route: IV; Rate: calculated rate; Site: right femoral; db 16:28 Follow up: BP 99 / 61; Rate change 7.5 mcg/kg/min db 16:34 Follow up: Rate change 10 mcg/kg/min db 16:45 Follow up: BP 94 / 42; Rate change 12.5 mcg/kg/min db 19:59 Follow up: Response: No adverse reaction; IV Status: Infusion continued upon transfer as6 17:13 Drug: Piperacillin-Tazobactam IVPB 3.375 grams Route: IVPB; Infused Over: 60 mins; db Site: right antecubital; 18:15 Follow up: Response: No adverse reaction; IV Status: Completed infusion; IV Intake: db 100ml 19:38 Drug: Acetaminophen IL Suppository 1300 mg Route: IL; as6 19:58 Follow up: Response: No adverse reaction as6 19:40 Drug: NS 0.9% IV 1000 ml Route: IV; Rate: 1 bolus; Site: right femoral; as6 19:58 Follow up: Response: No adverse reaction; IV Status: Completed infusion; IV Intake: as6 1000ml 19:40 Drug: Keppra IV 1000 mg Route: IV; Rate: per protocol; Site: right femoral; as6 19:57 Follow up: Response: No adverse reaction; IV Status: Completed infusion; IV Intake: as6 100ml Disposition: 15:16 Critical Care:. rn 11/05 07:04 Co-signature as Attending Physician, Ethan Garcia MD. rn Disposition Summary: 11/04/22 15:58 Transfer Ordered Transfer Location: [facility] rn Reason: Higher level of care rn Condition: Serious rn Problem: new rn Symptoms: have improved rn Accepting Physician: / [place]innatisagar Vinta(11/04/22 20:00) as6 Diagnosis - Altered mental status, unspecified rn - Metabolic encephalopathy rn - Fever, unspecified rn - Hypotension, unspecified marketing research intern Instructions: - Discharge Summary Sheet rn Forms: - Medication Reconciliation Form rn - SBAR form corn shucker time excluding procedures: 11/04 15:16 Critical care time: Bedside Care: 80 minutes. Total time: 80 minutes rn Signatures: Dispatcher [employer] Issac Chow MD MD cha Nieto, Roman, MD MD rn Smirch, Shelby, RN Master Mckenzie RN RN jl7 Ju Akers Ashby RN RN as6 Zandra Melo, RN RN db Corrections: (The following items were deleted from the chart) 13:47 12:43 Abdomen Pelvis W Con+CT.RAD.BRZ ordered. EDMS EDMS 15:21 12:53 Constitutional: Thin male, altered and agitated, diaphoretic Head/Face: rn Normocephalic, atraumatic. ENT: dry MM Cardiovascular: Tachycardic, regular Respiratory: + mod tachypnea, no retractions Abdomen/GI: soft, non-distended Skin: Cool, diaphoretic MS/ Extremity: Pulses equal, no cyanosis. Neuro: Somnolent, agitated, altered, not following commands, mumbling and grunting rn 17:45 15:58 Dr. dionicio gamboa 20:00 17:45 / [facility] [place] as6
== END 2022-11-04 20:00 | disposition short-term general hospital (02) ==
LOC: ER 12:38
PROC: 0BH17EZ Insertion of Endotracheal Airway into Trachea, Via Natural or Artificial Opening (ICD-10-PCS; principal; 2022-11-04)
PROC: 06HM33Z Insertion of Infusion Device into Right Femoral Vein, Percutaneous Approach (ICD-10-PCS; 2022-11-04)
DX: R41.82 Altered mental status, unspecified (principal); G93.41 Metabolic encephalopathy; R50.9 Fever, unspecified; I95.9 Hypotension, unspecified; Z20.822 Contact with and (suspected) exposure to COVID-19
CPT/HCPCS: 31500; 36415; 51702; 70450; 71045; 74176; 80048; 80076; 80307; 81003; 82550; 82805; 82947; 83605; 84484; 85025; 85610; 85730; 87040; 87205; 87811; 93005; 94002; 99291; G0480; J1953; J2543; J2704; J7030